=== PATIENT | female | born 2000 | race Caucasian/White ===

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

== ENCOUNTER 2020-09-09 12:04 | Emergency (ER) | payer MEDICAID ==
[~2020-09-09] VITALS: Ht 167.6 cm; Wt 73.0 kg
[2020-09-09] MEDS ORDERED: ACETAMINOPHEN 325MG TABLET PO ONE (13:15)
[2020-09-09 13:58] VITALS: BP 126/61
== END 2020-09-09 14:00 | disposition home or self-care (01) ==
LOC: ER 12:25
DX: R10.0 Acute abdomen (principal)
CPT/HCPCS: 99282